=== PATIENT | female | born 1985 | race Caucasian/White ===

== ENCOUNTER → 2017-04-09 | Outpatient (CLI) | payer OTHER ==
[~2017-04-09] VITALS: Ht 165.1 cm; Wt 59.5 kg
[~2017-04-09] MED LIST: CALCIUM-MAGNES1 EA10 PO; PRENATAL TABLE1 EACH PO; TAPAZOLE5 MG PO; VITAMIN D31000 UNIT PO
[2017-04-09 13:22] VITALS: BP 130/61
== END | disposition home or self-care (01) ==
LOC: IVINF 13:00
DX: O36.0990 Maternal care for other rhesus isoimmunization, unspecified trimester, not applicable or unspecified (principal); Z3A.00 Weeks of gestation of pregnancy not specified
CPT/HCPCS: J2790

== ENCOUNTER 2017-07-03 01:03 | Inpatient (IN) | payer OTHER ==
[2017-07-03] VITALS (17 sets, daily range): BP systolic 106–160; BP diastolic 66–89
[~2017-07-03] VITALS: Ht 165.1 cm; Wt 65.0 kg
[2017-07-03 02:17] LABS: BASOPHIL (%) 0.3 % (0-1); BASOPHIL COUNT 0.1 K/uL (0-0.1); EOSINOPHIL (%) 0.1 % (0-5); HEMATOCRIT 36.3 % (36.0-46.0); HEMOGLOBIN 12.4 G/DL (11.9-15.5); IMMATURE GRANULOCYTE (%) 0.5 % (0.0-0.7); LYMPHOCYTE (%) 7.9 % (15-42); LYMPHOCYTE COUNT 1.3 K/uL (1.0-2.8); MCH 30.8 PG (29.0-34.0); MCHC 34.2 G/DL (30.0-36.0); MCV 90.3 FL (83-99); MONOCYTE (%) 3.7 % (3-12); MONOCYTE COUNT 0.6 K/uL (0-0.8); NEUTROPHIL (%) 87.5 % (45-76); NEUTROPHIL COUNT 14.1 K/uL (1.8-6.4); PLATELET COUNT 202 K/uL (156-360); RBC DIS.WIDTH-CV 13.2 % (11.8-14.6); RBC DIS.WIDTH-SD 43.9 % (39-53); RED BLOOD COUNT 4.02 M/uL (3.80-5.20); WHITE BLOOD COUNT 16.1 K/uL (4.1-10.2)
[2017-07-03 02:27] LABS: PTT 27.2 SEC (25-37)
[2017-07-03 02:28] LABS: ALBUMIN 3.7 g/dL (3.2-4.8); CHLORIDE 105 mEq/L (99-109); POTASSIUM 3.8 mEq/L (3.7-5.4); SODIUM 136 mEq/L (136-147)
[2017-07-03 02:31] LABS: GLUCOSE 94 mg/dL (70-99); TOTAL PROTEIN 6.4 g/dL (6.4-8.3)
[2017-07-03 02:32] LABS: TOTAL BILIRUBIN 0.4 mg/dL (0.0-1.0)
[2017-07-03 02:34] LABS: ALKALINE PHOSPHATASE 168 IU/L (3-129); CREATININE 0.7 mg/dL (0.6-1.3); GFR ESTIMATE (CALCULATED) > 59 mL/min/
[2017-07-03 02:35] LABS: UREA NITROGEN (BUN) 10 mg/dL (9-23)
[2017-07-03 02:36] LABS: AST (GOT) 22 IU/L (2-34)
[2017-07-03 02:37] LABS: ALT (GPT) 18 IU/L (3-49)
[2017-07-03 04:36] LABS: UR CREATININE CONCENTRATION 153.7 MG/DL
[2017-07-04 06:42] LABS: BASOPHIL (%) 0.3 % (0-1); EOSINOPHIL (%) 0.4 % (0-5); EOSINOPHIL COUNT 0.1 K/uL (0-0.3); HEMATOCRIT 24.5 % (36.0-46.0); IMMATURE GRANULOCYTE (%) 0.3 % (0.0-0.7); LYMPHOCYTE (%) 26.1 % (15-42); LYMPHOCYTE COUNT 3.3 K/uL (1.0-2.8); MCH 30.7 PG (29.0-34.0); MCHC 33.1 G/DL (30.0-36.0); MCV 92.8 FL (83-99); MONOCYTE (%) 5.3 % (3-12); MONOCYTE COUNT 0.7 K/uL (0-0.8); NEUTROPHIL (%) 67.6 % (45-76); NEUTROPHIL COUNT 8.4 K/uL (1.8-6.4); PLATELET COUNT 169 K/uL (156-360); RBC DIS.WIDTH-CV 13.6 % (11.8-14.6); RBC DIS.WIDTH-SD 46.4 % (39-53); WHITE BLOOD COUNT 12.4 K/uL (4.1-10.2)
[2017-07-04 06:45] LABS: HEMOGLOBIN 8.1 G/DL (11.9-15.5); RED BLOOD COUNT 2.64 M/uL (3.80-5.20)
[2017-07-04 14:55] VITALS: BP 122/65
[2017-07-04 23:00] VITALS: BP 140/69
[2017-07-05 13:14] LABS: BASOPHIL (%) 0.4 % (0-1); EOSINOPHIL (%) 3.2 % (0-5); EOSINOPHIL COUNT 0.3 K/uL (0-0.3); HEMATOCRIT 21.4 % (36.0-46.0); HEMOGLOBIN 7.1 G/DL (11.9-15.5); IMMATURE GRANULOCYTE (%) 0.4 % (0.0-0.7); LYMPHOCYTE (%) 24.1 % (15-42); LYMPHOCYTE COUNT 2.4 K/uL (1.0-2.8); MCH 30.9 PG (29.0-34.0); MCHC 33.2 G/DL (30.0-36.0); MONOCYTE (%) 5.1 % (3-12); MONOCYTE COUNT 0.5 K/uL (0-0.8); NEUTROPHIL (%) 66.8 % (45-76); NEUTROPHIL COUNT 6.7 K/uL (1.8-6.4); PLATELET COUNT 183 K/uL (156-360); RBC DIS.WIDTH-CV 13.4 % (11.8-14.6); RBC DIS.WIDTH-SD 45.6 % (39-53)
[2017-07-05] MEDS ORDERED: PERCOCET 5/31 TABLET PO (13:30)
[2017-07-05] MEDS ORDERED: IBUPROFEN800 MG PO (13:30)
[2017-07-05] MEDS ORDERED: VITRON-C TABLE1 EACH PO (13:30)
[2017-07-05] MEDS ORDERED: COLACE100 MG PO (13:30)
[2017-07-05] MEDS ORDERED: ANUSOL-HC21 GM PR (13:30)
== END 2017-07-05 22:25 | disposition home or self-care (01) | DRG 775 ==
LOC: LDRP-OP → 2WEST 01:04 → LDRP-OP 08-27 13:39
PROVIDERS: Advanced Practice Midwife
DX: O70.1 Second degree perineal laceration during delivery (principal); D62 Acute posthemorrhagic anemia; O99.02 Anemia complicating childbirth; Z37.0 Single live birth; Z87.891 Personal history of nicotine dependence; O77.0 Labor and delivery complicated by meconium in amniotic fluid; O62.2 Other uterine inertia
CPT/HCPCS: 80053; 82570; 83030; 84156; 85025; 85610; 85730; 86850; 86900; 86901; J2790; J7120

== ENCOUNTER → 2017-07-21 | Outpatient (CLI) | payer OTHER ==
[~2017-07-21] MED LIST changes: +ANUSOL-HC21 GM PR; +COLACE100 MG PO; +IBUPROFEN800 MG PO; +PERCOCET 5/31 TABLET PO; +VITRON-C TABLE1 EACH PO
== END | disposition home or self-care (01) ==
LOC: LAC 14:51
DX: Z39.1 Encounter for care and examination of lactating mother (principal); O92.03 Retracted nipple associated with lactation
CPT/HCPCS: G0463